=== PATIENT | male | born 1985 | race Hispanic/Latino ===

== ENCOUNTER 2022-07-26 07:40 | Emergency (ER) | payer SELFPAY ==
--- NOTE | 2022-07-26 08:46 | RAD REPORT ---
EXAM DESCRIPTION: RAD - Hand Right 3 View - 07/26/2022 8:34 am CLINICAL HISTORY: Smash injury. Right third digit pain COMPARISON: None. TECHNIQUE: Three views of the right hand. FINDINGS: No fracture is identified. There is no dislocation or periosteal reaction noted. No foreign body or soft tissue gas. Moderate soft tissue swelling along the third digit. IMPRESSION: No acute osseus abnormality. Moderate soft tissue swelling along the third digit.
--- NOTE | 2022-07-26 09:06 | ER ---
Nurse's Notes [facility] Name: Brady Doshi Jr Age: 37 yrs Sex: Male : 1985 Arrival Date: 07/26/2022 Time: 07:42 Bed IW1 Private MD: Diagnosis: Contusion of hand Presentation: 07/26 08:21 Chief complaint: Patient states: he injured his right hand Sunday when changing a ap3 tire. patient complains of pain 10/10 at this time. he reports he thought the pain would get better, when he reports that the pain has gotten worse over the last few days. Coronavirus screen: At this time, the client does not indicate any symptoms associated with coronavirus-19. Ebola Screen: No symptoms or risks identified at this time. Initial Sepsis Screen: Does the patient meet any 2 criteria? No. Patient's initial sepsis screen is negative. Does the patient have a suspected source of infection? No. Patient's initial sepsis screen is negative. Risk Assessment: Do you want to hurt yourself or someone else? Patient reports no desire to harm self or others. 08:21 Method Of Arrival: Ambulatory ap3 08:21 Acuity: ANDREA 4 ap3 08:25 Onset of symptoms was July 22, 2022. ap3 Triage Assessment: 08:24 General: Appears in no apparent distress. Behavior is calm, cooperative. Pain: ap3 Complains of pain in right hand Pain does not radiate. Pain currently is 10 out of 10 on a pain scale. Neuro: Level of Consciousness is awake, alert, obeys commands, Oriented to person, place, time, situation. Cardiovascular: Patient's skin is warm and dry. Respiratory: Airway is patent Respiratory effort is even, unlabored. Musculoskeletal: Reports pain in right hand. Injury Description: Crush injury was sustained 5 days. Historical: - Allergies: 08:23 No Known Allergies; ap3 - Home Meds: 08:23 None [Active]; ap3 - PMHx: 08:23 None; ap3 - Immunization history:: Client reports receiving the 2nd dose of the Covid vaccine, Last tetanus immunization: unknown, Flu vaccine is not up to date. - Social history:: Smoking status: Reported history of juuling and/or vaping. Screenin:25 [facility] ED Fall Risk Assessment (Adult) History of falling in the last 3 months, ap3 including since admission No falls in past 3 months (0 pts). Abuse screen: Denies threats or abuse. Nutritional screening: No deficits noted. Tuberculosis screening: No symptoms or risk factors identified. Vital Signs: 08:21 BP 137 / 99; Pulse 86; Resp 16; Temp 99.1; Pulse Ox 98% ; Weight 86.18 kg; Pain 10/10; ap3 ED Course: 07:42 Patient arrived in ED. rg4 07:55 Ab Chaney MD is Attending Physician. bs3 08:23 Triage completed. ap3 08:25 Arm band placed on left wrist. ap3 09:19 Patient has correct armband on for positive identification. ap3 09:19 No provider procedures requiring assistance completed. Patient did not have IV access ap3 during this emergency room visit. Administered Medications: 09:18 Drug: Motrin (ibuprofen) 600 mg Route: PO; ap3 Medication: 09:19 VIS not applicable for this client. ap3 Outcome: 09:05 Discharge ordered by . bs3 09:19 Discharged to home ambulatory. ap3 09:19 Condition: good 09:19 Discharge instructions given to patient. 09:19 Patient left the ED. ap3 Signatures: Mame Duaret rg4 Ny Hernandez RN RN ap3 Ab Chaney MD MD bs3
--- NOTE | 2022-07-26 09:06 | EDPHYS ---
Physician Documentation [facility] Name: Brady Doshi Jr Age: 37 yrs Sex: Male : 1985 Arrival Date: 07/26/2022 Time: 07:42 Bed IW1 Private MD: ED Physician Ab Chaney HPI: 07/26 07:58 This 37 yrs old Male presents to ER via Unassigned with complaints of Hand bs3 Injury. 07:58 No past medical history presents with right third digit pain he was working on a car on bs3 Sunday and a tire dropped on his finger and then on the palmar aspect a rock went inside he now has persistent pain since then and some swelling he has pain with range of motion denies fevers chills or anything else bothering him. Historical: - Allergies: 08:23 No Known Allergies; ap3 - Home Meds: 08:23 None [Active]; ap3 - PMHx: 08:23 None; ap3 - Immunization history:: Client reports receiving the 2nd dose of the Covid vaccine, Last tetanus immunization: unknown, Flu vaccine is not up to date. - Social history:: Smoking status: Reported history of juuling and/or vaping. ROS: 07:58 Constitutional: Negative for fever, chills bs3 07:58 All other systems are negative. Exam: 07:58 Constitutional: This is a well developed, well nourished patient who is awake, alert, bs3 and in no acute distress. Head/Face: Normocephalic, atraumatic. Eyes: Pupils equal round and reactive to light, extra-ocular motions intact. Lids and lashes normal. ENT: mmm, no posterior phyarngeal erythema Chest/axilla: Normal chest wall appearance and motion. Nontender with no deformity. No lesions are appreciated. Cardiovascular: Regular rate and rhythm with a normal S1 and S2. symmetric pulses in upper extremities MS/ Extremity: His right third digit is slightly swollen it is not held in flexion he has more swelling at the DIP there is no significant erythema around he has no fusiform swelling, no tenderness along the sheath of the tendon Neuro: Awake and alert, GCS 15, oriented to person, place, time, and situation. Cranial nerves II-XII grossly intact. Motor strength 5/5 in all extremities. Sensory grossly intact. Psych: Awake, alert, with orientation to person, place and time. Behavior, mood, and affect are within normal limits. Vital Signs: 08:21 BP 137 / 99; Pulse 86; Resp 16; Temp 99.1; Pulse Ox 98% ; Weight 86.18 kg; Pain 10/10; ap3 MDM: 07:55 Patient medically screened. bs3 07:58 Differential diagnosis: Possible fracture given the blunt trauma he likely has a bs3 foreign body we will get an x-ray I considered flexor tenosynovitis but he does not have kanavel signs. 08:39 Data reviewed: vital signs, nurses notes. Independent interpretation of the following bs3 test(s) in the Emergency Department X-Ray: My interpretation is No foreign body no fracture. 09:04 ED course: likely contusion. bs3 07/26 07:55 Order name: XRAY Hand RIGHT 3 View bs3 07/26 08:46 Order name: RAD; Complete Time: 09:02 EDMS Administered Medications: 09:18 Drug: Motrin (ibuprofen) 600 mg Route: PO; ap3 Disposition Summary: 07/26/22 09:05 Discharge Ordered Location: Home bs3 Problem: new bs3 Symptoms: are unchanged bs3 Condition: Stable bs3 Diagnosis - Contusion of hand bs3 Followup: bs3 - With: Private Physician - When: 2 - 3 days - Reason: Re-evaluation by your physician Discharge Instructions: - Discharge Summary Sheet bs3 - Contusion, [id number] bs3 Forms: - Medication Reconciliation Form bs3 - Thank You Letter bs3 - Antibiotic Education bs3 - Work release form bs3 - Prescription Opioid Use bs3 Signatures: Dispatcher [employer] EDMS Ny Hernandez RN RN ap3 Ab Chaney MD MD bs3 Corrections: (The following items were deleted from the chart) 08:39 07:58 Constitutional: This is a well developed, well nourished patient who is awake, bs3 alert, and in no acute distress. Head/Face: Normocephalic, atraumatic. Eyes: Pupils equal round and reactive to light, extra-ocular motions intact. Lids and lashes normal. ENT: mmm, no posterior phyarngeal erythema Chest/axilla: Normal chest wall appearance and motion. Nontender with no deformity. No lesions are appreciated. Cardiovascular: Regular rate and rhythm with a normal S1 and S2. symmetric pulses in upper extremities MS/ Extremity: His right third digit is slightly swollen it is not held in flexion he has a palpable foreign body at the DIP there is no significant erythema around he has no fusiform swelling, no tenderness along the sheath of the tendon Neuro: Awake and alert, GCS 15, oriented to person, place, time, and situation. Cranial nerves II-XII grossly intact. Motor strength 5/5 in all extremities. Sensory grossly intact. Psych: Awake, alert, with orientation to person, place and time. Behavior, mood, and affect are within normal limits. bs3
[2022-07-26] MEDS ORDERED: IBUPROFEN 200 MG TAB PO ONE (09:21)
[2022-07-26 09:23] VITALS: BP 137/99; TEMP 99.1; O2SAT 98
== END 2022-07-26 09:19 | disposition home or self-care (01) ==
LOC: ER 07:40
DX: S60.221A Contusion of right hand, initial encounter (principal)

== ENCOUNTER 2022-07-29 00:09 | Emergency (ER) | payer SELFPAY ==
[2022-07-29 02:26] LABS: Absolute Lymphocytes (CBC) 1.8 K/uL (0.7-4.9); Hematocrit 48.9 % (39.6-49.0); Lymphocytes % 16.1 % (15.3-44.8); MCV 88.9 fL (80-100); MPV 8.8 fL (7.6-11.3)
[2022-07-29 02:27] LABS: Protime INR 0.94
[2022-07-29 02:36] LABS: C-Reactive Protein 65.4 mg/L (<3.00); Potassium 3.9 mmol/L (3.5-5.1)
[2022-07-29] MEDS ORDERED: ONDANSETRON 4 MG/2 ML VIAL ONE (02:37)
[2022-07-29] MEDS ORDERED: MORPHINE 4 MG/ML SYR ONE ×3 (02:37→07:24)
--- NOTE | 2022-07-29 02:58 | ER ---
Nurse's Notes [facility] Name: Brady Doshi Jr Age: 37 yrs Sex: Male : 1985 Arrival Date: 07/29/2022 Time: 00:12 Bed 2 Private MD: Diagnosis: Other synovitis and tenosynovitis, right hand-right middle finger Presentation: 07/29 00:45 Chief complaint: Patient states: he injured his right middle finger on Sunday and was bb seen here on Sunday but was not given anything for pain now it is more swollen has drainage and he cannot even sleep. Coronavirus screen: At this time, the client does not indicate any symptoms associated with coronavirus-19. Ebola Screen: No symptoms or risks identified at this time. Initial Sepsis Screen: Does the patient meet any 2 criteria? No. Patient's initial sepsis screen is negative. Does the patient have a suspected source of infection? No. Patient's initial sepsis screen is negative. Risk Assessment: Do you want to hurt yourself or someone else? Patient reports no desire to harm self or others. Onset of symptoms was July 29, 2022. 00:45 Method Of Arrival: Ambulatory bb 00:45 Acuity: ANDREA 3 bb Triage Assessment: 02:14 General: Appears uncomfortable, Behavior is calm, cooperative, appropriate for age. tw5 Injury Description: abscess. Historical: - Allergies: 00:47 No Known Allergies; bb - PMHx: 00:47 None; bb - Immunization history:: Adult Immunizations up to date. - Social history:: Smoking status: Patient reports the use of cigarette tobacco products. Screenin:12 [facility] ED Fall Risk Assessment (Adult) History of falling in the last 3 months, tw5 including since admission No falls in past 3 months (0 pts). Abuse screen: Denies threats or abuse. Denies injuries from another. Nutritional screening: No deficits noted. Tuberculosis screening: No symptoms or risk factors identified. Assessment: 02:12 General: Reports "I am came here last Sunday for the same thing. They just told me my tw5 finger was swollen. The swelling got worse then today when I bent my finger it popped and a bunch of pus came out.". Pain: Pain currently is 8 out of 10 on a pain scale. Musculoskeletal: Swelling present in palmar aspect of distal phalanx of right middle finger and palmar aspect of middle phalanx of right middle finger. 03:46 Reassessment: Patient states feeling better. Patient states symptoms have improved. tw5 Pain: Pain currently is 8 out of 10 on a pain scale. 07:05 Reassessment: No changes from previously documented assessment. report received from ll1 shift superintendent RN. 07:20 Reassessment: No changes from previously documented assessment. Patient and/or family ll1 updated on plan of care and expected duration. Pain level reassessed. Patient is alert, oriented x 3, equal unlabored respirations, skin warm/dry/pink. 08:15 Reassessment: No changes from previously documented assessment. Patient and/or family ll1 updated on plan of care and expected duration. Pain level reassessed. Patient is alert, oriented x 3, equal unlabored respirations, skin warm/dry/pink. Vital Signs: 00:45 BP 137 / 102; Pulse 85; Resp 16 S; Temp 98.5(O); Pulse Ox 100% on R/A; Weight 87.09 kg bb (R); Height 5 ft. 2 in. (157.48 cm) (R); Pain 9/10; 02:12 BP 143 / 100; Pulse 76; Resp 18; Pulse Ox 100% on R/A; Pain 8/10; tw5 02:38 BP 137 / 90; Pulse 82; Resp 18; Pulse Ox 100% on R/A; tw5 03:46 BP 133 / 87; Pulse 79; Resp 18; Pulse Ox 98% on R/A; tw5 05:22 Pain 5/10; tw5 07:25 BP 126 / 98; Pulse 75; Resp 17; Pulse Ox 97% on R/A; Pain 8/10; ll1 08:14 BP 122 / 92; Pulse 68; Resp 17; Temp 97.4(TE); Pulse Ox 98% ; Pain 4/10; ll1 00:45 Body Mass Index 35.12 (87.09 kg, 157.48 cm) bb ED Course: 00:12 Patient arrived in ED. jj6 00:17 Reece Sinha PA is PHCP. cp 00:17 Bhavna Oakes MD is Attending Physician. cp 00:47 Triage completed. bb 00:47 Arm band placed on Patient placed in an exam room, on a stretcher. bb 01:41 XRAY Hand RIGHT 2 View In Process Unspecified. EDMS 02:00 Margo Dao is Primary Nurse. tw5 02:12 Patient has correct armband on for positive identification. tw 02:12 BMP Sent. tw 02:12 PT-INR Sent. 02:12 CBC with Diff Sent. tw 02:12 CRP Sent. tw5 02:12 Initial lab(s) drawn, by me, held in ED. Inserted saline lock: 20 gauge in left tw5 antecubital area, using aseptic technique. Blood collected. 02:34 BMP Sent. tw 02:34 CRP Sent. tw 03:16 SARS RAPID Sent. tw 03:21 No provider procedures requiring assistance completed. 03:44 Wound Culture Sent. 04:25 Lactate w/ 2H reflex if indic. Sent. 08:15 Patient transferred, IV remains in place. ll1 Administered Medications: 02:38 Drug: morphine 4 mg Route: IVP; Infused Over: 4 mins; Site: left antecubital; tw 03:44 Follow up: Response: No adverse reaction; RASS: Alert and Calm (0) tw 02:38 Drug: Zofran (Ondansetron) 4 mg Route: IVP; Site: left antecubital; tw 03:44 Follow up: Response: No adverse reaction 03:15 Drug: Rocephin (cefTRIAXone) 2 grams Route: IV; Rate: calculated rate; Site: left tw5 antecubital; 03:44 Follow up: Response: No adverse reaction; IV Status: Completed infusion; IV Intake: 100ml 03:37 Drug: Tetanus-Diphtheria Toxoid Adult 0.5 ml {Student Services Counselor: [employer]. Exp: 10/15/2023. Lot #: [id number]. } Route: IM; Site: right deltoid; 03:44 Follow up: Response: (VIS) Vaccine information sheet provided today. Questions and/or 5 concerns addressed. VIS edition date: Jan 14, 2021.; No adverse reaction 03:44 Drug: vancoMYCIN 1 grams Route: IVPB; Infused Over: 2 hrs; Site: left antecubital; tw5 06:27 Follow up: Response: No adverse reaction; IV Status: Completed infusion as6 03:44 Drug: morphine 4 mg Route: IVP; Infused Over: 4 mins; Site: left antecubital; tw5 05:22 Follow up: Pain 5/10 Adult; Response: No adverse reaction; Pain is decreased; RASS: tw5 Alert and Calm (0) 03:44 Drug: NS 0.9% 1000 ml Route: IV; Rate: 1 bolus; Site: left antecubital; tw5 05:22 Follow up: Response: No adverse reaction; IV Status: Completed infusion; IV Intake: tw5 1000ml 06:27 Drug: NS 0.9% 1000 ml Route: IV; Rate: 125 ml/hr; Site: left antecubital; as6 08:14 Follow up: Response: No adverse reaction; IV Status: Infusion continued upon transfer; 1 IV Intake: 300ml 07:26 Drug: morphine 4 mg {Note: RASS 0, pain 8/10.} Route: IVP; Infused Over: 4 mins; Site: ll1 left antecubital; 08:13 Follow up: Response: No adverse reaction; Pain is decreased; RASS: Alert and Calm (0) [facility] Medication: 02:12 VIS not applicable for this client. tw5 Intake: 03:44 IV: 100ml; Total: 100ml. tw5 05:22 IV: 1000ml; Total: 1100ml. tw5 08:14 IV: 300ml; Total: 1400ml. [facility] Outcome: 02:57 ER care complete, transfer ordered by . cp 08:15 Transferred by ground EMS [facility] 08:15 Condition: stable 08:15 Instructed on the need for transfer. 08:16 Patient left the ED. [facility] Addendum: 08/01/2022 07:44 Addendum: Culture Results: Positive wound culture. Results faxed to [facility]. [address] Signatures: Dispatcher [employer] EDMS Yane Stark RN Alba Malloy RN RN aa5 Reece Sinha PA PA cp Lewis, Lynsay RN RN ll1 Margo Dao tw5 Cheryle Galiciaj6 Zhang Taveras RN RN as6
--- NOTE | 2022-07-29 02:58 | EDPHYS ---
Physician Documentation [facility] Name: Brady Doshi Jr Age: 37 yrs Sex: Male : 1985 Arrival Date: 07/29/2022 Time: 00:12 Bed 2 Private MD: ED Physician Bhavna Oakes HPI: 07/29 01:00 This 37 yrs old Male presents to ER via Ambulatory with complaints of Finger cp Injury. 01:00 Patient is a 37-year-old male who returns to the emergency department for reevaluation cp of his right middle finger. Patient is concerned about possible infection. Patient reports an initial crush type injury to his right middle finger on [place] in which a tire he was changing off of his automobile fell onto finger. Patient reports she came to the emergency room later that week on Sunday where x-rays were obtained that were negative for fracture and patient was discharged to home. Patient returns here with increased swelling, increased pain, a superficial wound that has expressed some drainage. Historical: - Allergies: 00:47 No Known Allergies; bb - PMHx: 00:47 None; bb - Immunization history:: Adult Immunizations up to date. - Social history:: Smoking status: Patient reports the use of cigarette tobacco products. ROS: 01:00 Constitutional: Negative for body aches, chills, fever, poor PO intake. cp 01:00 Eyes: Negative for injury, pain, redness, and discharge. cp 01:00 ENT: Negative for drainage from ear(s), ear pain, sore throat, difficulty swallowing, difficulty handling secretions. 01:00 Cardiovascular: Negative for chest pain, edema, palpitations. 01:00 Respiratory: Negative for cough, shortness of breath, wheezing. 01:00 Abdomen/GI: Negative for abdominal pain, nausea, vomiting, and diarrhea, constipation. 01:00 Back: Negative for pain at rest, pain with movement. 01:00 MS/extremity: Positive for pain, swelling, tenderness, of the right middle finger. 01:00 Neuro: Negative for altered mental status, headache, weakness. cp 01:00 All other systems are negative. cp Exam: 01:07 Constitutional: The patient appears in no acute distress, alert, awake, non-toxic, well cp developed, well nourished, uncomfortable. 01:07 Head/Face: Normocephalic, atraumatic. cp 01:07 Eyes: Periorbital structures: appear normal, Conjunctiva: normal, no exudate, no injection, Lids and lashes: appear normal, bilaterally. 01:07 ENT: External ear(s): are unremarkable, Nose: is normal, Mouth: Lips: moist, Oral mucosa: pink and intact, moist, Posterior pharynx: is normal, airway is patent, no erythema, no exudate. 01:07 Chest/axilla: Inspection: normal. 01:07 Cardiovascular: Rate: normal, Rhythm: regular. 01:07 Respiratory: the patient does not display signs of respiratory distress, Respirations: normal, no use of accessory muscles, no retractions, labored breathing, is not present, Breath sounds: are clear throughout, no decreased breath sounds, no stridor, no wheezing. 01:07 Abdomen/GI: Exam negative for discomfort, Inspection: abdomen appears normal. 01:07 Musculoskeletal/extremity: Extremities: noted in the right middle finger: circumferential swelling and erythema noted, digit held in slight flexion for comfort and pain noted with extension of digit, superficial abscess laughlin side distal phalanx with small wound noted laughlin side at distal interphalangeal joint, mild proximal streaking erythema noted dorsal and laughlin side to hand and wrist with pain to palpation volar side of right forearm, Perfusion: the extremity is warm, with brisk capillary refill, the right middle finger Sensation intact. 01:07 Neuro: Orientation: to person, place \T\ time. Mentation: is normal. Vital Signs: 00:45 BP 137 / 102; Pulse 85; Resp 16 S; Temp 98.5(O); Pulse Ox 100% on R/A; Weight 87.09 kg bb (R); Height 5 ft. 2 in. (157.48 cm) (R); Pain 9/10; 02:12 BP 143 / 100; Pulse 76; Resp 18; Pulse Ox 100% on R/A; Pain 8/10; tw5 02:38 BP 137 / 90; Pulse 82; Resp 18; Pulse Ox 100% on R/A; tw5 03:46 BP 133 / 87; Pulse 79; Resp 18; Pulse Ox 98% on R/A; tw5 05:22 Pain 5/10; tw5 07:25 BP 126 / 98; Pulse 75; Resp 17; Pulse Ox 97% on R/A; Pain 8/10; ll1 08:14 BP 122 / 92; Pulse 68; Resp 17; Temp 97.4(TE); Pulse Ox 98% ; Pain 4/10; ll1 00:45 Body Mass Index 35.12 (87.09 kg, 157.48 cm) bb MDM: 00:49 Patient medically screened. cp 03:30 ED course: discussed labs, imaging, exam with DR Kaye, hand surgeon \T\[facility], cp will consult on patient and requests transfer to services of hospitalist. 03:55 Differential diagnosis: fracture, sepsis, foreign body, tenosynovitis. Data reviewed: cp vital signs, nurses notes, lab test result(s), radiologic studies, plain films. Consideration of Admission/Observation will transfer for hand surgery consult. I considered the following discharge prescriptions or medication management in the emergency department Medications were administered in the Emergency Department. See MAR. Independent interpretation of the following test(s) in the Emergency Department X-Ray: My interpretation is right hand negative for fracture and/or foreign body. Counseling: I had a detailed discussion with the patient and/or guardian regarding: the historical points, exam findings, and any diagnostic results supporting the discharge/admit diagnosis, lab results, radiology results, the need to transfer to another facility, [facility] does not immediately have the required specialist. Response to treatment: the patient's symptoms have mildly improved after treatment. 07/29 01:18 Order name: CRP; Complete Time: 02:48 cp 07/29 02:48 Interpretation: Abnormal: C-REACTIVE PROT 65.40. cp 07/29 01:18 Order name: CBC with Diff; Complete Time: 02:33 cp 07/29 02:33 Interpretation: Normal except: WBC 11.30; RBC 5.50; SUSANNE% 74.9; NEUT A 8.5. cp 07/29 01:18 Order name: PT-INR; Complete Time: 02:33 cp 07/29 01:18 Order name: BMP; Complete Time: 02:48 cp 07/29 02:57 Order name: SARS RAPID; Complete Time: 04:04 ds4 07/29 03:31 Order name: Wound Culture cp 07/29 00:50 Order name: XRAY Hand RIGHT 2 View cp 07/29 04:05 Order name: Lactate w/ 2H reflex if indic. cp 07/29 01:18 Order name: IV; Complete Time: 02:12 cp Administered Medications: 02:38 Drug: morphine 4 mg Route: IVP; Infused Over: 4 mins; Site: left antecubital; tw5 03:44 Follow up: Response: No adverse reaction; RASS: Alert and Calm (0) tw5 02:38 Drug: Zofran (Ondansetron) 4 mg Route: IVP; Site: left antecubital; tw5 03:44 Follow up: Response: No adverse reaction tw5 03:15 Drug: Rocephin (cefTRIAXone) 2 grams Route: IV; Rate: calculated rate; Site: left tw5 antecubital; 03:44 Follow up: Response: No adverse reaction; IV Status: Completed infusion; IV Intake: tw5 100ml 03:37 Drug: Tetanus-Diphtheria Toxoid Adult 0.5 ml {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 Exp: 10/15/2023. Lot #: [id number]. } Route: IM; Site: right deltoid; 03:44 Follow up: Response: (VIS) Vaccine information sheet provided today. Questions and/or tw5 concerns addressed. VIS edition date: Jan 14, 2021.; No adverse reaction 03:44 Drug: vancoMYCIN 1 grams Route: IVPB; Infused Over: 2 hrs; Site: left antecubital; tw 06:27 Follow up: Response: No adverse reaction; IV Status: Completed infusion as6 03:44 Drug: morphine 4 mg Route: IVP; Infused Over: 4 mins; Site: left antecubital; tw 05:22 Follow up: Pain 5/10 Adult; Response: No adverse reaction; Pain is decreased; RASS: tw5 Alert and Calm (0) 03:44 Drug: NS 0.9% 1000 ml Route: IV; Rate: 1 bolus; Site: left antecubital; tw 05:22 Follow up: Response: No adverse reaction; IV Status: Completed infusion; IV Intake: tw5 1000ml 06:27 Drug: NS 0.9% 1000 ml Route: IV; Rate: 125 ml/hr; Site: left antecubital; as6 08:14 Follow up: Response: No adverse reaction; IV Status: Infusion continued upon transfer; ll1 IV Intake: 300ml 07:26 Drug: morphine 4 mg {Note: RASS 0, pain 8/10.} Route: IVP; Infused Over: 4 mins; Site: ll1 left antecubital; 08:13 Follow up: Response: No adverse reaction; Pain is decreased; RASS: Alert and Calm (0) ll1 Disposition: 07/30 00:35 I reviewed the patient's care provided by Advanced Practice Provider \T\ agree w/ the sd2 diagnosis \T\ care plan. I personally saw the pt \T\ performed a substantive portion of the visit, incldng all aspects of the (History/Exam/Medical Decision Making). PA/E [employer] SPECIALIST's history reviewed, patient interviewed, and examined. Disposition Summary: 07/29/22 02:57 Transfer Ordered Transfer Location: [facility] cp Reason: Higher level of care cp Condition: Stable cp Problem: new cp Symptoms: have improved cp Accepting Physician: DR Rodriguez(07/29/22 08:16) ll1 Diagnosis - Other synovitis and tenosynovitis, right hand - right middle finger cp Forms: - Medication Reconciliation Form cp - SBAR form cp Signatures: Dispatcher [employer] EDYane Moran RN RN Reece Saavedra PA PA cp Michelle Rodney RN RN ll1 Margo Dao tw5 Zhang Taveras RN RN as6 Bhavna Oakes MD MD sd2 Sebastien Pastrana MD MD rt Corrections: (The following items were deleted from the chart) 07/29 04:21 02:57 Doctor cp cp 08:16 04:21 DR Rodriguez cp ll1
[2022-07-29] MEDS ORDERED: VANCOMYCIN 1 GM/VIAL ONE (03:09)
[2022-07-29] MEDS ORDERED: CEFTRIAXONE 2000 MG/VIAL ONE (03:09)
[2022-07-29] MEDS ORDERED: NA CHLORIDE 0.9% 250 ML ONE (03:10)
[2022-07-29] MEDS ORDERED: NA CHLORIDE 0.9% 100 ML ONE (03:10)
[2022-07-29 03:31] LABS: SARS-CoV-2 Antigen Rapid Res Negative (Negative)
[2022-07-29] MEDS ORDERED: TETANUS & DIPHTHERIA TOX,ADULT 0.5 ML VIAL ONE (03:40)
[2022-07-29] MEDS ORDERED: NA CHLORIDE 0.9% 1,000 ML ONE ×2 (03:40→06:28)
[2022-07-29 08:36] VITALS: BP 122/92; TEMP 97.4; O2SAT 98
--- NOTE | 2022-07-31 11:19 | RAD REPORT ---
EXAM DESCRIPTION: RAD - Hand Right 2 View - 07/29/2022 1:38 am CLINICAL HISTORY: Swelling middle finger COMPARISON: None. FINDINGS: 2 views of the right hand. No acute fracture or dislocation. Normal osseous mineralization . Third digit soft tissue edema. No radiopaque foreign body. No destructive osseous lesion. IMPRESSION: 1. No acute fracture or dislocation. 2. Third digit edema may be related to cellulitis. 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 The interpreting radiologist is fully responsible for the content of the report.
== END 2022-07-29 08:16 | disposition short-term general hospital (02) ==
LOC: ER 00:09
DX: M65.841 Other synovitis and tenosynovitis, right hand (principal); Z23 Encounter for immunization; Z72.0 Tobacco use
CPT/HCPCS: 36415; 80048; 83605; 85025; 85610; 86140; 87070; 87077; 87186; 87205; 87811; 90471; 90714; 96361; 96365; 96366; 96367; 96375; 99285; J0696; J2405; J3370; J7030; J7050